=== PATIENT | female | born 2000 | race Hispanic/Latino ===

== ENCOUNTER 2021-12-14 08:46 | Emergency (ER) | payer OTHER ==
--- OUTSIDE RECORDS SUMMARY | 2021-12-14 08:51 | XMS REPORT | Continuity of Care Document ---
:2000 Author Organization [facility] t Address [address] [place] [address] Care Team Providers Name Role Phone Ramesh CABRERA Primary Care Physician Unavailable Ramesh CABRERA Attending Clinician Unavailable Adina GARNER Attending Clinician Unavailable Natasha WHCNLatoya C Attending Clinician Lab Attending Clinician Unavailable Adina Montemayor Attending Clinician Doctor Unassigned, Name Attending Clinician Unavailable Payers Payer Name Policy Type Policy Number Effective Date Expiration Date S ource CHIP GE PENDING PENDING 2021 00:00:00 [facility] [id number] 2021 MOM CHIP GE LOW 00:00:00 [employer] Problems Condition Condition Condition Status Onset Resolution Last Treating Co mments Source Name Details Category Date Date Treatment Clinician Date Multiparit Multiparit Disease Active U nivers y y 8-30 ity of 00:00: [address] Branch Supervisio Supervisio Disease Active U nivers n of other n of other 8-30 it y of normal normal 00:00: [place] 00 [facility] Branch Over Over Disease Active Univers weight weight 3-31 ity of 00:00: [address] Screening Screening Disease Active Uni vers examinatio examinatio 3-31 it y of n for STD n for STD 00:00: Priscilla s (sexually (sexually 00 [facility] bruna transmitte transmitte Br anch d disease) d disease) Overweight Overweight Disease Active U nivers (BMI (BMI 3-31 ity of 25.0-29.9) 25.0-29.9) 00:00: [place] [facility] Nexplanon Nexplanon Disease Active Uni vers removal removal 3 ity of 00:00: [address] Allergies, Adverse Reactions, Alerts Allergy Allergy Status Severity Reaction(s) Onset Inactive Treating Comm ents Source Name Type Date Date Clinician NO KNOWN Drug Active Univers ALLERGIE Class ity of S [facility] Social History Social Habit Start Date Stop Date Quantity Comments Source ASSERTION 2021-02-17 University of 00:00:00 [facility] History of tobacco Cigarette Smoker University of use [facility] Exposure to Not sure [facility] SARS-CoV-2 (event) [facility] Alcohol intake 2021-03-11 2021-03-11 0 /d [facility] 00:00:00 00:00:00 [facility] Cigarettes smoked 2019-12-27 2019-12-27 Univers ity of current (pack per 00:00:00 00:00:00 ) - Reported Branch Tobacco use and 2019-12-27 2019-12-27 Never used Universit y of exposure 00:00:00 00:00:00 [facility] Tobacco Comment 2019-12-27 2019-12-27 Socially per pt Univ ersity of 00:00:00 00:00:00 report [facility] Sex Assigned At 2000 2000 Universit y of 00:00:00 00:00:00 [facility] Smoking Status Start Date Stop Date Source Current some day smoker 2019-12-27 00:00:00 [facility] ersity of [facility] Never smoker [facility] Medications Ordered Filled Start Stop Current Ordering Indication Dosage Frequency Signature Comments Components Source Medication Medication Date Date Medication? Clinician (SIG) Name Name Yes [id number] 1{packe Take 1 Univers vit 9-07 t} Packet by ity of 33-iron-fol 00:00: mouth [place] ic-dha 00 daily. Medical (SELECT-OB Branch + DHA) 29 mg iron-1 mg -250 mg combo pack Yes [id number] 1{packe Take 1 Univers vit 9-07 t} Packet by ity of 33-iron-fol 00:00: mouth [place] ic-dha 00 daily. Medical (SELECT-OB Branch + DHA) 29 mg iron-1 mg -250 mg combo pack Yes [id number] 1{packe Take 1 Univers vit 9-07 t} Packet by ity of 33-iron-fol 00:00: mouth [place] ic-dha 00 daily. Medical (SELECT-OB Branch + DHA) 29 mg iron-1 mg -250 mg combo pack Yes [id number] 1{packe Take 1 Univers vit 9-07 t} Packet by ity of 33-iron-fol 00:00: mouth [place] ic-dha 00 daily. Medical (SELECT-OB Branch + DHA) 29 mg iron-1 mg -250 mg combo pack Yes [id number] 1{packe Take 1 Univers vit 9-07 t} Packet by ity of 33-iron-fol 00:00: mouth [place] ic-dha 00 daily. Medical (SELECT-OB Branch + DHA) 29 mg iron-1 mg -250 mg combo pack Yes [id number] 1{packe Take 1 Univers vit 9-07 t} Packet by ity of 33-iron-fol 00:00: mouth [place] ic-dha 00 daily. Medical (SELECT-OB Branch + DHA) 29 mg iron-1 mg -250 mg combo pack No known No Univers medications 8-30 ity of 14:39: [place] 57 Medical Branch norgestimat Yes [id number] 1{tbl} Take 1 Univers e-ethinyl 7-14 tablet by ity o f estradioL 00:00: mouth [place] (TRI-LO-SPR daily. Medica l INTEC) Branch 0.18/0.215/ 0.25 mg-25 mcg tablet norgestimat Yes [id number] 1{tbl} Take 1 Univers e-ethinyl 7-14 tablet by ity o f estradioL 00:00: mouth [place] (TRI-LO-SPR daily. Medica l INTEC) Branch 0.18/0.215/ 0.25 mg-25 mcg tablet norgestimat Yes [id number] 1{tbl} Take 1 Univers e-ethinyl 7-14 tablet by ity o f estradioL 00:00: mouth [place] (TRI-LO-SPR daily. Medica l INTEC) Branch 0.18/0.215/ 0.25 mg-25 mcg tablet norgestimat 2020-0 Yes [id number] 1{tbl} Take 1 Univers e-ethinyl 7-14 tablet by ity o f estradioL 00:00: mouth [place] (TRI-LO-SPR 00 daily. Medica l INTEC) Branch 0.18/0.215/ 0.25 mg-25 mcg tablet norgestimat 2020-0 2021- No [id number] 1{tbl} Take 1 Univers e-ethinyl 7-14 08-30 tablet by ity of estradioL 00:00: 00:00 mouth [place] (TRI-LO-SPR 00 :00 daily. Medica l INTEC) Branch 0.18/0.215/ 0.25 mg-25 mcg tablet norgestimat 2020-0 2020- No [id number] 1{tbl} Take 1 Univers e-ethinyl 7-14 08-30 tablet by ity of estradioL 00:00: 00:00 mouth [place] (TRI-LO-SPR 00 :00 daily. Medica l INTEC) Branch 0.18/0.215/ 0.25 mg-25 mcg tablet norgestimat 2020-0 Yes [id number] 1{tbl} Take 1 Univers e-ethinyl 4-21 tablet by ity o f estradioL 00:00: mouth [place] (TRI-LO-SPR 00 daily. Medica l INTEC) Branch 0.18/0.215/ 0.25 mg-25 mcg tablet norgestimat 2020-0 Yes [id number] 1{tbl} Take 1 Univers e-ethinyl 4-21 tablet by ity o f estradioL 00:00: mouth [place] (TRI-LO-SPR 00 daily. Medica l INTEC) Branch 0.18/0.215/ 0.25 mg-25 mcg tablet norgestimat 2020-0 Yes [id number] 1{tbl} Take 1 Univers e-ethinyl 4-21 tablet by ity o f estradioL 00:00: mouth [place] (TRI-LO-SPR 00 daily. Medica l INTEC) Branch 0.18/0.215/ 0.25 mg-25 mcg tablet norgestimat 2020-0 2021- No [id number] 1{tbl} Take 1 Univers e-ethinyl 4-21 07-14 tablet by ity of estradioL 00:00: 00:00 mouth [place] (TRI-LO-SPR 00 :00 daily. Medica l INTE) Branch 0.18/0.215/ 0.25 mg-25 mcg tablet norgestimat 2020- No [id number] 1{tbl} Take 1 Univers e-ethinyl 4-21 07-14 tablet by ity of estradioL 00:00: 00:00 mouth [place] (TRI-LO-SPR 00 :00 daily. Medica l INTEC) Branch 0.18/0.215/ 0.25 mg-25 mcg tablet norgestimat 2020- No [id number] 1{tbl} Take 1 Univers e-ethinyl 4-21 07-14 tablet by ity of estradioL 00:00: 00:00 mouth [place] (TRI-LO-SPR 00 :00 daily. Medica l INTE) Branch 0.18/0.215/ 0.25 mg-25 mcg tablet metroNIDAZO 2015-07 Yes [id number] 500mg Take 1 Univers LE (FLAGYL) 2-06 tablet by ity of 500 mg 00:00: mouth 2 [place] tablet 00 (two) Medical times Branch daily. metroNIDAZO 2015-07 Yes [id number] 500mg Take 1 Univers LE (FLAGYL) 2-06 tablet by ity of 500 mg 00:00: mouth 2 [place] tablet 00 (two) Medical times Branch daily. metroNIDAZO 2015-07 Yes [id number] 500mg Take 1 Univers LE (FLAGYL) 2-06 tablet by ity of 500 mg 00:00: mouth 2 [place] tablet 00 (two) Medical times Branch daily. metroNIDAZO 2015-07 Yes [id number] 500mg Take 1 Univers LE (FLAGYL) 2-06 tablet by ity of 500 mg 00:00: mouth 2 [place] tablet 00 (two) Medical times Branch daily. metroNIDAZO 2015-07 Yes [id number] 500mg Take 1 Univers LE (FLAGYL) 2-06 tablet by ity of 500 mg 00:00: mouth 2 [place] tablet 00 (two) Medical times Branch daily. metroNIDAZO 2015-07 Yes [id number] 500mg Take 1 Univers LE (FLAGYL) 2-06 tablet by ity of 500 mg 00:00: mouth 2 [place] tablet 00 (two) Medical times Branch daily. metroNIDAZO 2015-07 Yes [id number] 500mg Take 1 Univers LE (FLAGYL) 2-06 tablet by ity of 500 mg 00:00: mouth 2 [place] tablet 00 (two) Medical times Branch daily. metroNIDAZO 2015-07 Yes [id number] 500mg Take 1 Univers LE (FLAGYL) 2-06 tablet by ity of 500 mg 00:00: mouth 2 [place] tablet 00 (two) Medical times Branch daily. metroNIDAZO 2015-07 Yes [id number] 500mg Take 1 Univers LE (FLAGYL) 2-06 tablet by ity of 500 mg 00:00: mouth 2 [place] tablet 00 (two) Medical times Branch daily. metroNIDAZO 2015-07 Yes [id number] 500mg Take 1 Univers LE (FLAGYL) 2-06 tablet by ity of 500 mg 00:00: mouth 2 [place] tablet 00 (two) Medical times Branch daily. metroNIDAZO 2015-07 Yes [id number] 500mg Take 1 Univers LE (FLAGYL) 2-06 tablet by ity of 500 mg 00:00: mouth 2 [place] tablet 00 (two) Medical times Branch daily. metroNIDAZO 2015-07 Yes [id number] 500mg Take 1 Univers LE (FLAGYL) 2-06 tablet by ity of 500 mg 00:00: mouth 2 [place] tablet 00 (two) Medical times Branch daily. metroNIDAZO 2015-07 Yes [id number] 500mg Take 1 Univers LE (FLAGYL) 2-06 tablet by ity of 500 mg 00:00: mouth 2 [place] tablet 00 (two) Medical times Branch daily. metroNIDAZO 2015-07- No [id number] 500mg Take 1 Univers LE (FLAGYL) 2-06 07-14 tablet by it y of 500 mg 00:00: 00:00 mouth 2 [place] tablet 00 :00 (two) Medical times Branch daily. metroNIDAZO 2015-07- No [id number] 500mg Take 1 Univers LE (FLAGYL) 2-06 07-14 tablet by it y of 500 mg 00:00: 00:00 mouth 2 [place] tablet 00 :00 (two) Medical times Branch daily. metroNIDAZO 2015-07- No [id number] 500mg Take 1 Univers LE (FLAGYL) 2- 07-14 tablet by it y of 500 mg 00:00: 00:00 mouth 2 [place] tablet 00 :00 (two) Medical times Branch daily. Yes [id number] 1{tbl} Take 1 U nivers multivitami 7-25 tablet by ity of n ( 00:00: mouth [place] VITAMIN) 00 daily. Medical tablet Branch Yes [id number] 1{tbl} Take 1 U nivers multivitami 7-25 tablet by ity of n ( 00:00: mouth [place] VITAMIN) 00 daily. Medical tablet Branch Yes [id number] 1{tbl} Take 1 U nivers multivitami 7-25 tablet by ity of n ( 00:00: mouth [place] VITAMIN) 00 daily. Medical tablet Branch Yes [id number] 1{tbl} Take 1 U nivers multivitami 7-25 tablet by ity of n ( 00:00: mouth [place] VITAMIN) 00 daily. Medical tablet Branch Yes [id number] 1{tbl} Take 1 U nivers multivitami 7-25 tablet by ity of n ( 00:00: mouth [place] VITAMIN) 00 daily. Medical tablet Branch Yes [id number] 1{tbl} Take 1 U nivers multivitami 7-25 tablet by ity of n ( 00:00: mouth [place] VITAMIN) 00 daily. Medical tablet Branch Yes [id number] 1{tbl} Take 1 U nivers multivitami 7-25 tablet by ity of n ( 00:00: mouth [place] VITAMIN) 00 daily. Medical tablet Branch Yes [id number] 1{tbl} Take 1 U nivers multivitami 7-25 tablet by ity of n ( 00:00: mouth [place] VITAMIN) 00 daily. Medical tablet Branch Yes [id number] 1{tbl} Take 1 U nivers multivitami 7-25 tablet by ity of n ( 00:00: mouth [place] VITAMIN) 00 daily. Medical tablet Branch Yes [id number] 1{tbl} Take 1 U nivers multivitami 7-25 tablet by ity of n ( 00:00: mouth [place] VITAMIN) 00 daily. Medical tablet Branch Yes [id number] 1{tbl} Take 1 U nivers multivitami 7-25 tablet by ity of n ( 00:00: mouth [place] VITAMIN) 00 daily. Medical tablet Branch Yes [id number] 1{tbl} Take 1 U nivers multivitami 7-25 tablet by ity of n ( 00:00: mouth [place] VITAMIN) 00 daily. Medical tablet Branch Yes [id number] 1{tbl} Take 1 U nivers multivitami 7-25 tablet by ity of n ( 00:00: mouth [place] VITAMIN) 00 daily. Medical tablet Branch 2020- No [id number] 1{tbl} Take 1 Univers multivitami 7-25 07-14 tablet by it y of n ( 00:00[place] V[place] :00 daily. Medical tablet Branch 2020- No [id number] 1{tbl} Take 1 Univers multivitami 7-25 07-14 tablet by it y of n ( 00:00[place] VIT[place] :00 daily. Medical tablet Branch 2020- No [id number] 1{tbl} Take 1 Univers multivitami 7-25 07-14 tablet by it y of n ( 00:[place] VIT[place] :00 daily. Medical tablet Branch No known No Univers medications [facility] No known No Univers medications [facility] No known No Univers medications [facility] Immunizations Ordered Filled Immunization Date Status Comments [facility] e Immunization Name Name [facility] 2016-06-17 Completed University of 00:00:00 [facility] Tdap 2016-06-17 Completed University of 00:00:00 [facility] Tdap 2016-06-17 Completed University of 00:00:00 [facility] Tdap 2016-06-17 Completed University of 00:00:00 [facility] Tdap 2016-06-17 Completed University of 00:00:00 [facility] Tdap 2016-06-17 Completed University of 00:00:00 [facility] TDAP 2016-06-17 Completed University of 00:00:00 [facility] TDAP 2016-06-17 Completed University of 00:00:00 [facility] TDAP 2016-06-17 Completed University of 00:00:00 [facility] TDAP 2016-06-17 Completed University of 00:00:00 [facility] TDAP 2016-06-17 Completed University of 00:00:00 [facility] TDAP 2016-06-17 Completed University of 00:00:00 [facility] TDAP 2016-06-17 Completed University of 00:00:00 [facility] TDAP 2016-06-17 Completed University of 00:00:00 [facility] TDAP 2016-06-17 Completed University of 00:00:00 [facility] TDAP 2016-06-17 Completed University of 00:00:00 [facility] TDAP 2016-06-17 Completed University of 00:00:00 [facility] TDAP 2016-06-17 Completed University of 00:00:00 [facility] TDAP 2016-06-17 Completed University of 00:00:00 [facility] TDAP 2016-06-17 Completed University of 00:00:00 [facility] TDAP 2016-06-17 Completed University of 00:00:00 [facility] TDAP 2016-06-17 Completed University of 00:00:00 [facility] TDAP 2016-06-17 Completed University of 00:00:00 [facility] TDAP 2016-06-17 Completed University of 00:00:00 [facility] TDAP 2016-06-17 Completed University of 00:00:00 [facility] TDAP 2016-06-17 Completed University of 00:00:00 [facility] TDAP 2016-06-17 Completed University of 00:00:00 [facility] TDAP 2016-06-17 Completed University of 00:00:00 [facility] TDAP 2016-06-17 Completed University of 00:00:00 [facility] Influenza Virus 2016-05-02 Completed Universit y of Vaccine Quad IM 3+ 00:00:00 [facility] Influenza Virus 2016-05-02 Completed Universit y of Vaccine Quad IM 3+ 00:00:00 [facility] Influenza Virus 2016-05-02 Completed Universit y of Vaccine Quad IM 3+ 00:00:00 [facility] Influenza Virus 2016-05-02 Completed Universit y of Vaccine Quad IM 3+ 00:00:00 [facility] Influenza Virus 2016-05-02 Completed Universit y of Vaccine Quad IM 3+ 00:00:00 [facility] Influenza Virus 2016-05-02 Completed Universit y of Vaccine Quad IM 3+ 00:00:00 [facility] Influenza Virus 2016-05-02 Completed Universit y of Vaccine Quad IM 3+ 00:00:00 [facility] Influenza Virus 2016-05-02 Completed Universit y of Vaccine Quad IM 3+ 00:00:00 [facility] Influenza Virus 2016-05-02 Completed Universit y of Vaccine Quad IM 3+ 00:00:00 [facility] Influenza Virus 2016-05-02 Completed Universit y of Vaccine Quad IM 3+ 00:00:00 [facility] Influenza Virus 2016-05-02 Completed Universit y of Vaccine Quad IM 3+ 00:00:00 [facility] Influenza Virus 2016-05-02 Completed Universit y of Vaccine Quad IM 3+ 00:00:00 [facility] Influenza Virus 2016-05-02 Completed Universit y of Vaccine Quad IM 3+ 00:00:00 [facility] Influenza Virus 2016-05-02 Completed Universit y of Vaccine Quad IM 3+ 00:00:00 [facility] Influenza Virus 2016-05-02 Completed Universit y of Vaccine Quad IM 3+ 00:00:00 [facility] Influenza Virus 2016-05-02 Completed Universit y of Vaccine Quad IM 3+ 00:00:00 [facility] Influenza Virus 2016-05-02 Completed Universit y of Vaccine Quad IM 3+ 00:00:00 [facility] Influenza Virus 2016-05-02 Completed Universit y of Vaccine Quad IM 3+ 00:00:00 [facility] Influenza Virus 2016-05-02 Completed Universit y of Vaccine Quad IM 3+ 00:00:00 [facility] Influenza Virus 2016-05-02 Completed Universit y of Vaccine Quad IM 3+ 00:00:00 [facility] Influenza Virus 2016-05-02 Completed Universit y of Vaccine Quad IM 3+ 00:00:00 [facility] Influenza Virus 2016-05-02 Completed Universit y of Vaccine Quad IM 3+ 00:00:00 [facility] Influenza Virus 2016-05-02 Completed Universit y of Vaccine Quad IM 3+ 00:00:00 [facility] Influenza Virus 2016-05-02 Completed Universit y of Vaccine Quad IM 3+ 00:00:00 [facility] Influenza Virus 2016-05-02 Completed Universit y of Vaccine Quad IM 3+ 00:00:00 [facility] Branch Influenza Virus 2016-05-02 Completed Universit y of Vaccine Quad IM 3+ 00:00:00 [facility] Influenza Virus 2016-05-02 Completed Universit y of Vaccine Quad IM 3+ 00:00:00 [facility] Influenza Virus 2016-05-02 Completed Universit y of Vaccine Quad IM 3+ 00:00:00 [facility] Branch Influenza Virus 2016-05-02 Completed Universit y of Vaccine Quad IM 3+ 00:00:00 [facility] Vital Signs Vital Name Observation Time Observation Value Comments Source Systolic blood 2021-03-11 19:15:00 121 mm[Hg] Univer sity of pressure [facility] Diastolic blood 2021-03-11 19:15:00 74 mm[Hg] Unive rsity of pressure [facility] Heart rate 2021-03-11 19:15:00 77 /min Universi ty of [facility] Body temperature 2021-03-11 19:15:00 37.28 Ashley [facility] ersity of [facility] Respiratory rate 2021-03-11 19:15:00 16 /min Univ ersity of [facility] Body height 2021-03-11 19:15:00 154.9 cm Universi ty of [place] [facility] Body weight 2021-03-11 19:15:00 71.305 kg Universi ty of [facility] BMI 2021-03-11 19:15:00 29.70 kg/m2 Universi ty of [facility] Systolic blood 2021-01-23 20:29:00 120 mm[Hg] Univer sity of pressure [facility] Branch Diastolic blood 2021-01-23 20:29:00 77 mm[Hg] Unive rsity of pressure [facility] Heart rate 2021-01-23 20:29:00 79 /min Universi ty of [facility] Branch Body temperature 2021-01-23 20:29:00 37 Ashley [facility] ersity of [facility] Branch Respiratory rate 2021-01-23 20:29:00 16 /min Univ ersity of [facility] Body height 2021-01-23 20:29:00 157.5 cm Universi ty of [place] [facility] Body weight 2021-01-23 20:29:00 73.483 kg Universi ty of [place] [facility] BMI 2021-01-23 20:29:00 29.63 kg/m2 Universi ty of [place] [facility] Systolic blood 2020-10-31 20:55:00 122 mm[Hg] Univer sity of pressure [place] [facility] Diastolic blood 2020-10-31 20:55:00 68 mm[Hg] Unive rsity of pressure [place] [facility] Heart rate 2020-10-31 20:55:00 73 /min Universi ty of [place] [facility] Body temperature 2020-10-31 20:55:00 36.56 Ashley Univ ersity of [place] [facility] Respiratory rate 2020-10-31 20:55:00 16 /min Univ ersity of [place] [facility] Body height 2020-10-31 20:55:00 157.5 cm Universi ty of [place] [facility] Body weight 2020-10-31 20:55:00 76.794 kg Universi ty of [place] [facility] BMI 2020-10-31 20:55:00 30.97 kg/m2 Universi ty of [place] [facility] Systolic blood 2020-10-18 19:36:00 112 mm[Hg] Univer sity of pressure [place] [facility] Diastolic blood 2020-10-18 19:36:00 68 mm[Hg] Unive rsity of pressure [place] [facility] Heart rate 2020-10-18 19:36:00 68 /min Universi ty of [place] [facility] Body temperature 2020-10-18 19:36:00 36.61 Ashley Univ ersity of [place] [facility] Respiratory rate 2020-10-18 19:36:00 16 /min Univ ersity of [place] [facility] Body height 2020-10-18 19:36:00 157.5 cm Universi ty of [place] [facility] Body weight 2020-10-18 19:36:00 74.985 kg Universi ty of [place] [facility] BMI 2020-10-18 19:36:00 30.24 kg/m2 Universi ty of [place] [facility] Systolic blood 2020-01-09 19:15:00 125 mm[Hg] Univer sity of pressure [place] [facility] Diastolic blood 2020-01-09 19:15:00 74 mm[Hg] Unive rsity of pressure [place] [facility] Heart rate 2020-01-09 19:15:00 83 /min Universi ty of [place] [facility] Body temperature 2020-01-09 19:15:00 37.44 Ashley Univ ersity of [facility] Respiratory rate 2020-01-09 19:15:00 18 /min Univ ersity of [facility] Body height 2020-01-09 19:15:00 154.9 cm Universi ty of [facility] Body weight 2020-01-09 19:15:00 70.58 kg Universi ty of [facility] BMI 2020-01-09 19:15:00 29.40 kg/m2 Universi ty of [facility] Systolic blood 2019-12-27 19:59:00 114 mm[Hg] Univer sity of pressure [facility] Diastolic blood 2019-12-27 19:59:00 67 mm[Hg] Unive rsity of [facility] Heart rate 2019-12-27 19:59:00 77 /min Universi ty of [facility] Body temperature 2019-12-27 19:59:00 37.17 Ashley [facility] Respiratory rate 2019-12-27 19:59:00 16 /min [facility] Body height 2019-12-27 19:59:00 157.5 cm Universi ty of [facility] Body weight 2019-12-27 19:59:00 69.542 kg Universi ty of [facility] BMI 2019-12-27 19:59:00 28.04 kg/m2 Universi ty of [facility] Procedures Procedure Date / Time Performed Performing Clinician [facility] TOTAL BETA HCG ASSAY 2021-03-19 18:46:00 rBent Garner [facility] POCT URINALYSIS W/O 2021-03-11 19:17:00 Brent Garner [facility] SPECIFIC GRAVITY [facility] POCT TEST 2021-03-11 19:06:00 Brent Garner [facility] REPORT OF 2021-03-11 05:01:00 [facility] 2021-01-23 20:33:00 Brent Garner [facility] ASSIGNMENT OF BENEFITS 2021-01-23 20:16:10 Doctor Unassigned, No University [facility] POCT TEST 2020-10-31 21:00:00 Brent Garner [facility] POCT TEST 2020-10-18 19:42:00 Brent Garner [facility] POCT TEST 2020-01-09 19:24:00 Radha Cabrera [facility] DISCLOSURE AND 2020-01-09 05:01:00 Doctor Unassigned, No [facility] CONSENT, MEDICAL AND Name Medical [facility] SURGICAL PROCEDURES POCT TEST 2019-12-27 20:00:00 Radha Cabrera [facility] CONSENT/REFUSAL FOR 2019-12-27 19:11:56 Doctor Unassigned, No [facility] DIAGNOSIS AND [facility] TREATMENT ASSIGNMENT OF BENEFITS 2019-12-27 19:11:23 Doctor Unassigned, No [facility] NOTICE OF PRIVACY 2019-12-27 19:11:00 Doctor Unassigned, No [facility] Encounters Start End Encounter Admission Attending Care Care Encounter Source Date/Time Date/Time Type Type Clinicians Facility Department ID 2021-10-23 2021-10-23 Outpatient R NATASHA, [facility] [id number] Univers 15:00:00 15:00:00 RADHA [facility] o [facility] [place] 2021-10-23 2021-10-23 Outpatient R NATASHA, [facility] [id number] Univers 14:30:00 14:30:00 RADHA [id number] ity o f [facility] 2021-10-23 2021-10-23 Outpatient R AKINSIPE, [facility] [id number] Univers 14:00:00 14:00:00 RADHA ity o f [facility] 2021-09-23 2021-09-23 Outpatient R CECE, [facility] [id number] Univers 15:00:00 15:00:00 BRENT [id number] ity o f [facility] 2021-09-23 2021-09-23 Outpatient Adina GARNER, [facility] [id number] Univers 15:00:00 15:00:00 DIANANDA ity o [facility] 2021-04-15 2021-04-15 Outpatient R [facility] [id number] Univers 13:30:00 13:30:00 [id number] [facility] 2021-04-15 2021-04-15 Outpatient P [facility] [id number] Univers 13:30:00 13:30:00 [facility] 2021-04-08 2021-04-08 Outpatient R CECE [facility] [id number] Univers 15:30:00 15:30:00 BRENT [id number] ity o [facility] 2021-04-08 2021-04-08 Outpatient R CECE [facility] [id number] Univers 15:30:00 15:30:00 LEAHCHELO [facility] o [facility] 2021-04-08 2021-04-08 Outpatient R CECE [facility] [id number] Univers 15:00:00 [facility]:00[facility] 2021-04-05 2021-04-05 Outpatient R CECE [facility] [id number] Univers 13:15:00 13:15:00 LEAHCHELO [id number] y o [facility] 2021-04-05 2021-04-05 Outpatient R CECE [facility] [id number] Univers 13:15:00 13:15:00 [facility] 2021-03-21 2021-03-21 [facility] [id number] Univers 00:00:00 00:00:00 Radha C [employer] [id number] ity of REGIONAL 4.2.7.2.686 Juanjose as MATERNAL [phone] Med ical & CHILD [address] [place] [address] 2021-03-19 2021-03-19 [employer] [facility], [facility] 1.2.840. [id number] Univers 13:35:47 13:57:31 Visit Radha Cabrera [employer] 350.1.13. 10 ity of REGIONAL 4.2.7.2.686 Juanjose as MATERNAL [phone] [facility] ical & CHILD [address] [place] [address] 2021-03-19 2021-03-19 Outpatient [facility] [id number] Univers 13:15:00 13:15:00 [id number] ity of [facility] 2021-03-19 2021-03-19 Outpatient R NATASHA [facility] [id number] Univers 13:15:00 13:15:00 RADHA denny o f [facility] 2021-03-19 2021-03-19 Telephone Cece [facility] [id number] Univers 00:00:00 00:00:00 Rosjyotinda R [employer] 350.1.13.10 ity of REGIONAL [id number] Juanjose as MATERNAL [phone] [facility] & [address] 2021-03-12 2021-03-12 [facility] [id number] Univers 00:00:00 00:00:00 Rosjyotinda R [employer] 350.1.13.10 ity of REGIONAL 4.2.7.2.686 Juanjose as MATERNAL [phone] [facility] & CHILD [address] [place] [address] 2021-03-11 2021-03-11 Initial Cece [facility] 1.2.840.114 [id number] Univers 13:59:45 14:58:54 Roshunda R [employer] 350.1.13.10 ity of Visit REGIONAL 4.2.7.2.686 Juanjose as MATERNAL [phone] [facility] & [address] 2021-03-11 2021-03-11 Outpatient [facility] [id number] Univers 13:30:00 13:30:00 [id number] ity of [facility] 2021-03-11 2021-03-11 Outpatient R CECE [facility] [id number] Univers 13:30:00 13:30:00 ROSHUNDA denny o f [facility] 2021-03-11 2021-03-11 Orders Doctor [facility] 1.2.840.114 [id number] Univers 00:00:00 00:00:00 Only Unassigned, NAHOMY 350.1.13.10 ity of [facility] 4.2.7.2.686 Juanjose as [phone] [address] 2021-03-07 2021-03-07 [facility] [id number] Univers 00:00:00 00:00:00 [facility] [employer] 350.1.13.10 ity of REGIONAL 4.2.7.2.686 Juanjose as MATERNAL [phone] [facility] & CHILD [address] [place] [address] 2021-01-23 2021-01-23 Office [facility] 1.2.840.114 [id number] Univers 15:17:30 15:48:19 [facility] R [employer] 350.1.13.10 ity of REGIONAL 4.2.7.2.686 Juanjose as MATERNAL [phone] [address] 2021-01-23 2021-01-23 [facility] [id number] Univers 15:30:00 15:30:00 [facility] [id number] f [facility] 2021-01-23 2021-01-23 [facility] [id number] Univers 15:30:00 15:30:00 [facility] 2021-01-23 2021-01-23 Orders Doctor [place] 1.2.840.114 [id number] Univers 00:00:00 00:00:00 Only Unassigned, NAHOMY 350.1.13.10 [facility]y of [facility] 4.2.7.2.686 Juanjose as [phone] [address] 2020-10-31 2020-10-31 Office [facility] 1.2.840.114 [id number] Univers 15:50:16 16:13:06 Visit [facility] R [employer] 350.1.13.10 ity of REGIONAL 4.2.7.2.686 Juanjose as MATERNAL [phone] [facility] & CHILD [address] [place] [address] 2020-10-31 2020-10-31 Outpatient Adina GARNER [facility] [id number] Univers 15:45:00 15:45:00 BRENT [id number] itabi o [facility] 2020-10-31 2020-10-31 Outpatient Adina GARNER [facility] [id number] Univers 15:45:00 15:45:00 BRENT baldwin o [facility] 2020-10-31 2020-10-31 Outpatient Adina GARNER [facility] [id number] Univers 15:45:00 15:45:00 BRENT baldwin o [facility] 2020-10-18 2020-10-18 Office Cece [facility] 1.2.840.114 [id number] Univers 14:12:50 14:45:47 Visit Leahjyotichelo Holden [employer] 350.1.13.10 ity [facility] 4.2.7.2.686 Juanjose as MATERNAL [phone] Med ical & CHILD [address] [place] [address] 2020-10-18 2020-10-18 Outpatient Adina GARNER [facility] [id number] Univers 14:15:00 14:15:00 DIANACHELO [id number] denny o [facility] 2020-10-18 2020-10-18 Outpatient Adina GARNER [facility] [id number] Univers 14:15:00 14:15:00 BRENT baldwin o [facility] 2020-04-03 2020-04-03 Outpatient R NATASHA, [facility] [id number] Univers 12:45:00 12:45:00 RADHA [id number] ity o [facility] 2020-04-03 2020-04-03 Outpatient R AKINSIPE, [facility] [id number] Univers 12:45:00 12:45:00 RADHA ity o [facility] 2020-03-29 2020-03-29 Outpatient R AKINSIPE, [facility] [id number] Univers 14:30:00 14:30:00 RADHA ity o [facility] 2020-03-29 2020-03-29 Outpatient R [facility] [id number] Univers 14:00:00 14:00:00 [id number] ity of [facility] 2020-01-09 2020-01-09 Office Akinsipe, [facility] [id number] Univers 14:01:56 15:06:14 Visit Radha Chandler [employer] 350.1.13.10 ity [facility] 4.2.7.2.686 Juanjose as MATERNAL [phone] [facility] CHILD [address] [place] [address] 2020-01-09 2020-01-09 Outpatient R AKINSIPE, [facility] [id number] Univers 14:15:00 14:15:00 RADHA [id number] ity o [facility] 2020-01-09 2020-01-09 Outpatient R AKINSIPE, [facility] [id number] Univers 14:15:00 14:15:00 RADHA ity o [facility] 2020-01-09 2020-01-09 Orders Doctor FARRUKH 1.2.840.114 [id number] Univers 00:00:00 00:00:00 Only Unassigned, NAHOMY 350.1.13.10 [place] [id number] Juanjose as [id number] [address] 2019-12-27 2019-12-27 Outpatient R AKINSIPE, [facility] [id number] Univers 15:45:00 15:45:00 RADHA ity o [facility] 2019-12-27 2019-12-27 Office Akinpe, [facility] [id number] Univers 14:56:40 15:23:15 Visit Radha Chandler [employer] 350.1.13.10 ity [facility] 4.2.7.2.686 Juanjose as MATERNAL [phone] [facility] & CHILD [address] [place] [address] 2019-12-27 2019-12-27 Outpatient R AKINSIPE, [facility] [id number] Univers 14:45:00 14:45:00 RADHA [id number] ity o [facility] 2019-12-27 2019-12-27 Outpatient R AKINSIPE, [facility] [id number] Univers 14:45:00 14:45:00 RADHA ity o [facility] 2019-12-27 2019-12-27 [facility] [id number] Univers 14:45:00 14:45:00 RADHA ity o f [facility] 2019-12-27 2019-12-27 Outpatient R [facility] [id number] Univers 14:15:00 14:15:00 ity of [facility] 2019-12-27 2019-12-27 Orders Doctor FARRUKH 1.2.840.114 [id number] Univers 00:00:00 00:00:00 Only Unassigned, NAHOMY 350.1.13.10 ity of [place] [facility] 4.2.7.2.686 Juanjose as [phone] [address] 2019-11-14 2019-11-14 Outpatient [facility] [id number] Univers 13:30:00 13:30:00 [id number] ity of [facility] 2019-11-14 2019-11-14 [facility] 1.2.840.114 [id number] Univers 00:00:00 00:00:00 Radha Chandler [employer] 350.1.13.10 ity of [facility] 4.2.7.2.686 Juanjose as MATERNAL [phone] [facility] ical & CHILD [address] [place] [address] 2019-10-03 2019-10-03 [facility]phone [facility] 1.2.840.114 [id number] Univers 00:00:00 00:00:00 Radha Chandler [employer] 350.1.13.10 ity of [facility] 4.2.7.2.686 Juanjose as MATERNAL [phone] [facility] [address] [place] [address] Results Test Description Test Time Test Comments Results Result Comments Source TOTAL BETA HCG ASSAY 2021-03-20 06:31:51 Test Item Value Reference Range Interpretation Comme nts BETA HCG (test code = <2.39 See_Comment [Auto mated message] The [id number]) system which ge nerated this result transmit marilu reference range : Non- fe male and male patients: <5 mIU/mL. The reference r baron was not used to interpr et this result as mariana l/abnormal. PHILLIP (test code = PHILLIP) Gestational Age ?Range (mIU/mL) 1-10 ?Weeks ?31-03906628-62 Weeks ?21841-50735681-72 Weeks ?7305-70870505-45 Weeks ?[id number] Biotin has been reported to cause a negative bias, interpret results relative to patient's use of biotin. [facility] URINALYSIS W/O SPECIFIC [id number] 19:17:00 Test Item Value Reference Range Interpretation Comments POCT PH U (test code = 3254) 0.5 mg/dl 5-8 A POCT U LEUK EST (test code = 1+ Negative - Negative 3263) POCT U NIT (test code = 3262) neg Negative - Negative POCT U PROT (test code = 3259) trace Negative - Negative POCT U GLU (test code = 3256) neg Negative - Negative POCT U KETONE (test code = neg Negative - Negative 3258) POCT U BLD (test code = 3257) Negative - Negative Lab Interpretation (test code = Abnormal 80269-3) [facility] URINALYSIS W/O SPECIFIC [id number] 19:17:00 Test Item Value Reference Range Interpretation Comments POCT PH U (test code = 3254) 0.5 mg/dl 5-8 A POCT U LEUK EST (test code = 1+ Negative - Negative 3263) POCT U NIT (test code = 3262) neg Negative - Negative POCT U PROT (test code = 3259) trace Negative - Negative POCT U GLU (test code = 3256) neg Negative - Negative POCT U KETONE (test code = neg Negative - Negative 3258) POCT U BLD (test code = 3257) [id number] Negative - Negative Lab Interpretation (test code = Abnormal 97445-6) [facility] [id number] 19:07:00 Test Item Value Reference Range Interpretation Comments POCT PREG (test code = 1605) Positive On board controls acceptable with C Yes Line (test code = 3576) POCT PREG LOT # (test code = 3575) POCT PREG TEST DATE (test code = 3576) Lab Interpretation (test code = Normal 82885-8) [facility] [id number] 19:07:00 Test Item Value Reference Range Interpretation Comments POCT PREG (test code = 1605) Positive On board controls acceptable with C Yes Line (test code = 3574) POCT PREG LOT # (test code = 3575) POCT PREG TEST DATE (test code = 3576) Lab Interpretation (test code = Normal 95527-9) [facility] [id number] 20:33:00 Test Item Value Reference Range Interpretation Comments POCT PREG (test code = 1605) Negative On board controls acceptable with C Yes Line (test code = 3574) POCT PREG LOT # (test code = 3575) POCT PREG TEST DATE (test code = 3576) Lab Interpretation (test code = Normal 02306-4) [facility] [id number] 20:33:00 Test Item Value Reference Range Interpretation Comments POCT PREG (test code = 1605) Negative On board controls acceptable with C Yes Line (test code = 3574) POCT PREG LOT # (test code = 3575) POCT PREG TEST DATE (test code = 3576) Lab Interpretation (test code = Normal 77360-3) [facility] [id number] 20:33:00 Test Item Value Reference Range Interpretation Comments POCT PREG (test code = 1605) Negative On board controls acceptable with C Yes Line (test code = 3574) POCT PREG LOT # (test code = 3575) POCT PREG TEST DATE (test code = 3576) Lab Interpretation (test code = Normal 34205-6) [facility] [id number] 21:01:00 Test Item Value Reference Range Interpretation Comments POCT PREG (test code = 1605) Negative On board controls acceptable with C Yes Line (test code = 3574) POCT PREG LOT # (test code = 3575) POCT PREG TEST DATE (test code = 3576) Lab Interpretation (test code = Normal 03122-0) [facility] [id number] 21:01:00 Test Item Value Reference Range Interpretation Comments POCT PREG (test code = 1605) Negative On board controls acceptable with C Yes Line (test code = 3574) POCT PREG LOT # (test code = 3575) POCT PREG TEST DATE (test code = 3576) Lab Interpretation (test code = Normal 58160-0) [facility] [id number] 19:42:00 Test Item Value Reference Range Interpretation Comments POCT PREG (test code = 1605) Negative On board controls acceptable with C Yes Line (test code = 3574) POCT PREG LOT # (test code = 3575) POCT PREG TEST DATE (test code = 3576) [facility] [id number] 19:42:00 Test Item Value Reference Range Interpretation Comments POCT PREG (test code = 1605) Negative On board controls acceptable with C Yes Line (test code = 3574) POCT PREG LOT # (test code = 3575) POCT PREG TEST DATE (test code = 3576) [facility] [id number] 19:24:00 Test Item Value Reference Range Interpretation Comments POCT PREG (test code = 1605) Negative On board controls acceptable with C Yes Line (test code = 3574) POCT PREG LOT # (test code = 3575) POCT PREG TEST DATE (test code = 3576) [facility] [id number] 19:24:00 Test Item Value Reference Range Interpretation Comments POCT PREG (test code = 1605) Negative On board controls acceptable with C Yes Line (test code = 3574) POCT PREG LOT # (test code = 3575) POCT PREG TEST DATE (test code = 3576) [facility] [id number] 20:00:00 Test Item Value Reference Range Interpretation Comments POCT PREG (test code = 1605) Negative On board controls acceptable with C Yes Line (test code = 3574) POCT PREG LOT # (test code = 3575) POCT PREG TEST DATE (test code = 3576) [facility] [id number] 20:00:00 Test Item Value Reference Range Interpretation Comments POCT PREG (test code = 1605) Negative On board controls acceptable with C Yes Line (test code = 3574) POCT PREG LOT # (test code = 3575) POCT PREG TEST DATE (test code = 3576) [facility]
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
[2021-12-14] MEDS ORDERED: IBUPROFEN 200 MG TAB PO ONE (10:02)
[2021-12-14] MEDS ORDERED: CYCLOBENZAPRINE 10 MG TAB ONE (10:02)
[2021-12-14] MEDS ORDERED: LIDOCAINE 4% PATCH ONE (10:03)
[2021-12-14 10:05] LABS: Urine Blood Trace-lysed (Negative); Urine Glucose Negative (Negative); Urine Protein 1+ (Negative); Urine Specific Gravity 1.025 (1.005-1.030)
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
[2021-12-14 10:33] LABS: Urine Specific Gravity/Preg 1.025 (1.005-1.030)
[2021-12-14 10:53] VITALS: TEMP 98.9; O2SAT 99
[2021-12-14 10:59] VITALS: BP 105/78
== END 2021-12-14 10:33 | disposition home or self-care (01) ==
LOC: ER 08:46
DX: M54.2 Cervicalgia (principal); M54.9 Dorsalgia, unspecified; V49.49XA Driver injured in collision with other motor vehicles in traffic accident, initial encounter; Z23 Encounter for immunization
CPT/HCPCS: 81025; 81003; 72131; 70450; 72125; 72128; 99284; J2001